=== PATIENT | female | born 1985 | race Caucasian/White ===

== ENCOUNTER 2023-05-08 04:03 | Day surgery (SDC) | payer OTHER ==
[2023-05-06 16:41] VITALS: BMI 30.7
[2023-05-08] MEDS ORDERED: MIDAZOLAM HCL 2 MG/2 ML SINGLE DOSE VIAL ONE (10:37)
[2023-05-08] MEDS ORDERED: PROPOFOL 40 ML ONE (10:38)
[2023-05-08] MEDS ORDERED: LIDOCAINE HCL/PF 2% SDV 5ML VIAL ONE (10:47)
[2023-05-08] MEDS ORDERED: ROPIVACAINE HCL 0.5% 30ML VIAL ONE (10:59)
[2023-05-08] MEDS ORDERED: ACETAMINOPHEN INJECTION 100 ML IVPB ONE (11:43)
[2023-05-08] MEDS ORDERED: HYDROmorphone HCl 2 MG/ML VIAL ONE (11:47)
[2023-05-08] MEDS ORDERED: ceFAZolin SODIUM 1 GM VIAL IVPB ONE (11:58)
[2023-05-08] MEDS ORDERED: ONDANSETRON 4 MG/2 ML VIAL IVPUSH PRN (13:24)
[2023-05-08] MEDS ORDERED: oxyCODONE HCL 5 MG TABLET PO PRN (13:24)
[2023-05-08] MEDS ORDERED: LACTATED RINGERS SOLUTION 1,000 ML IV SCH (13:30)
[2023-05-08] MEDS ORDERED: oxyCODONE HCL 5 MG TABLET ONE (15:35)
[2023-05-08 15:48] VITALS: RESP 20; TEMP 98.6
[2023-05-08 18:22] VITALS: BP 122/68; PULSE 78
== END 2023-05-08 17:57 | disposition home or self-care (01) ==
LOC: JASU-SURG 04:03
PROVIDERS: ATTEND Orthopaedic Surgery
PROC: 0MRP4JZ Replacement of Left Knee Bursa and Ligament with Synthetic Substitute, Percutaneous Endoscopic Approach (ICD-10-PCS; principal; 2023-05-08 12:30)
DX: S83.512A Sprain of anterior cruciate ligament of left knee, initial encounter (principal); X58.XXXA Exposure to other specified factors, initial encounter; Y93.9 Activity, unspecified; Y92.89 Other specified places as the place of occurrence of the external cause; Y99.9 Unspecified external cause status
CPT/HCPCS: 29888; C1713; 81025; 94760